=== PATIENT | female | born 1985 | race Caucasian/White ===

== ENCOUNTER 2017-01-17 17:38 | Emergency (ER) | payer MEDICAID ==
[~2017-01-17] VITALS: Ht 160 cm; Wt 78.9 kg
[~2017-01-17 17:38] MED LIST: CALC-143 PO; IBUP-1542 PO; PREN1CAP12
[2017-01-17 17:40] VITALS: Ht 160 cm; Wt 78.9 kg
[2017-01-17] MEDS ORDERED: KETOROLAC 60 MG INJ IM STA (18:20)
[2017-01-17 18:24] LABS: URINE BLOOD (Dip) POC Negative (NEGATIVE)
[2017-01-17 18:38] LABS: ADD SCAN DIFF NO
[2017-01-17 18:40] LABS: BASOPHILS % 0.3 % (0.0-2.0); EOSINOPHILS # 0.4 10^3/ul (0.0-0.5); EOSINOPHILS % 7.2 % (0.0-7.0); HEMATOCRIT 38.2 % (37.0-47.0); HEMOGLOBIN 12.8 g/dl (12.0-16.0); LYMPHOCYTES # 1.2 10^3/ul (0.8-2.9); LYMPHOCYTES % 20.7 % (15.0-51.0); MEAN CORPUSCULAR HGB CONC 33.5 g/dl (32.0-37.0); MEAN CORPUSCULAR VOLUME 86.4 fl (82.0-101.0); MONOCYTE # 0.3 10^3/ul (0.3-0.9); MONOCYTES % 5.6 % (0.0-11.0); NEUTROPHIL # 3.9 10^3/ul (1.6-7.5); PLATELET COUNT 171 10^3/UL (140-415); RED BLOOD COUNT 4.42 10^6/ul (4.20-5.40); RED CELL DISTRIBUTION WIDTH 13.9 % (11.5-14.5); WHITE BLOOD COUNT 5.9 10^3/ul (4.8-10.8)
[2017-01-17 18:49] LABS: ALBUMIN 3.8 g/dl (3.3-4.9); POTASSIUM 3.9 mmol/L (3.5-5.1)
[2017-01-17 18:51] LABS: BILIRUBIN,INDIRECT 0.4 mg/dl (0-1.1); BILIRUBIN,TOTAL 0.4 mg/dl (0.2-1.3); CREATININE 0.65 mg/dl (0.44-1.00)
[2017-01-17 18:52] LABS: ALBUMIN/GLOBULIN RATIO 1.02; CALCIUM 8.8 mg/dl (8.4-10.2); TOTAL PROTEIN 7.5 g/dl (6.1-8.1)
[2017-01-17] MEDS ORDERED: IBUP-1542 PO (19:26)
--- NOTE | 2017-01-28 10:18 | ERD ---
ER Documentation Chief Complaint Date/Time DATE: 01/28/17 TIME: 10:15 Chief Complaint JOINT PAIN X 1 YEAR INTERMITTENT HPI This 31-year-old male presents with intermittent joint pains and fatigue over the last year. She denies any current fevers, cough, shortness breath, vomiting , abdominal pain, diarrhea, urinary complaints. She denies any previous history of family history of autoimmune disease. ROS All systems reviewed and are negative except as per history of present illness. Medications Home Meds Active Scripts Ibuprofen* (Motrin*) 600 Mg Tab, 600 MG PO Q6, #30 TAB Prov:ALINA SEN MD 01/17/17 Ibuprofen* (Ibuprofen*) 600 Mg Tablet, 600 MG PO .ONCE Y for Mild Pain (Pain Score 1-3), #20 TAB 0 Refills Prov:CESIA HESS MD 05/20/16 Reported Medications Calcium Citrate/Vitamin D (Citracal-Vitamin D 200 MG-250) 1 Each Tablet, 1 EACH PO DAILY, TAB 08/06/14 No.25/Iron/Fa #6/Dha (PRENA1 SOFTGEL) 1 Each Capsule 02/06/14 Allergies Allergies: Coded Allergies: No Known Allergy (Verified , 03/26/16) PMhx/Soc Medical and Surgical Hx: pt denies Medical Hx, pt denies Surgical Hx Hx Alcohol Use: No Hx Substance Use: No Hx Tobacco Use: No Smoking Status: Never smoker Physical Exam Physical Exam Const: [] Alert, not ill-appearing . Head: Atraumatic Eyes: Normal Conjunctiva ENT: Normal External Ears, Nose and Mouth. Neck: Full range of motion..~ No meningismus. Resp: Clear to auscultation bilaterally Cardio: Regular rate and rhythm, no murmurs Abd: Soft, non tender, non distended. Normal bowel sounds Skin: No petechiae or rashes Back: No midline or flank tenderness Ext: No cyanosis, or edema. Mild generalized synovitis in the wrists and hands without erythema, warmth, restricted range of motion weakness. Neur: Awake and alert Psych: Normal Mood and Affect Results 24 hrs Laboratory Tests Test 01/17/17 18:24 01/17/17 18:30 Bedside Urine pH (LAB) 7.0 Bedside Urine Protein (LAB) Negative Bedside Urine Glucose (UA) Negative Bedside Urine Ketones (LAB) Negative Bedside Urine Blood Negative Bedside Urine Nitrite (LAB) Negative Bedside Urine Leukocyte Esterase (L Negative White Blood Count 5.910^3/ul Red Blood Count 4.4210^6/ul Hemoglobin 12.8g/dl Hematocrit 38.2% Mean Corpuscular Volume 86.4fl Mean Corpuscular Hemoglobin 29.0pg Mean Corpuscular Hemoglobin Concent 33.5g/dl Red Cell Distribution Width 13.9% Platelet Count 41344^3/UL Mean Platelet Volume 10.0fl Neutrophils % 66.0% Lymphocytes % 20.7% Monocytes % 5.6% Eosinophils % 7.2% Basophils % 0.3% Nucleated Red Blood Cells % 0.0/100WBC Neutrophils # 3.910^3/ul Lymphocytes # 1.210^3/ul Monocytes # 0.310^3/ul Eosinophils # 0.410^3/ul Basophils # 0.010^3/ul Nucleated Red Blood Cells # 0.010^3/ul Sodium Level 139mmol/L Potassium Level 3.9mmol/L Chloride Level 101mmol/L Carbon Dioxide Level 29mmol/L Anion Gap 13 Blood Urea Nitrogen 8mg/dl Creatinine 0.65mg/dl Glucose Level 102mg/dl Calcium Level 8.8mg/dl Total Bilirubin 0.4mg/dl Direct Bilirubin 0.00mg/dl Indirect Bilirubin 0.4mg/dl Aspartate Amino Transf (AST/SGOT) 30IU/L Alanine Aminotransferase (ALT/SGPT) 43IU/L Alkaline Phosphatase 84IU/L Total Protein 7.5g/dl Albumin 3.8g/dl Globulin 3.70g/dl Albumin/Globulin Ratio 1.02 Current Medications Medications (Trade) Dose Ordered Sig/Mellissa Route PRN Reason Start Time Stop Time Status Last Admin Dose Admin Ketorolac Tromethamine (Toradol) 60 mg ONCE STAT IM 01/17/17 18:20 01/17/17 18:21 DC 01/17/17 18:27 Procedures/MDM Patient presents with multiple complaints and diffuse arthralgias. CBC, CMP and urine is negative for acute findings. HCG is negative. Patient presents with multiple complaints and signs of arthralgias, possibly reactive arthritis or autoimmune disease. Patient is advised to follow-up with primary doctor for further evaluation and management otherwise return for fevers, vomiting, shortness of breath or chest pain. Signs and symptoms do not suggest septic arthritis, tenosynovitis, osteomyelitis, additional emergent causes of joint pain. The patient was stable with no new complaints during the ER course. Clinically, there is no current evidence to suggest meningitis, sepsis, acute abdomen, pneumonia, acute coronary syndrome, pulmonary embolism, or any other emergent condition appearing to require further evaluation or hospitalization. The patient should certainly return for any new or worsening symptoms per the aftercare instructions. They should otherwise follow-up with her primary care doctor for reevaluation this week. Departure Diagnosis: Primary Impression: Arthralgia Condition: Stable Patient Instructions: Arthralgia [facility] Usted se bennett hecho un examen mdico de control que le indica que no est en ja condicin que requiera tratamiento urgente en el Departamento de Emergencia. Un estudio ms profundo y el tratamiento de grant condicin pueden esperar sin ningn riesgo hasta que usted sea atendida/o en el consultorio de grant mdico o ja cl makenzie. Es responsabilidad suya arreglar ja lucina para el seguimiento del angela. MANEJO DE CONDICIONES NO URGENTES EN EL FUTURO 1) Si usted tiene un mdico de atencin primaria: Usted debera llamar a grant mdico de atencin primaria antes de venir al departamento de emergencia. Despus de las horas de consultorio, grant doctor o grant asociado/a est disponible por telfono. El mdico o enfermero de amanda en el servicio telefnico puede asesorarle por ana paula medio para atender el problema, o angela contrario se puede programar ja lucina. 2) Si usted no tiene un mdico de atencin primaria: Llame al mdico o clnica de referencia que aparece abajo alia las horas de consultorio para hacer ja lucina para que le vean. CLINICAS: [facility] [phone] [id number] [facility] [phone] [id number] [facility] [phone] [address] [facility] [phone] [facility] [phone] [address] [facility]. [phone] [address] Additional Instructions: Examines normal hoy. Cheque otro vez con grant doctor primario en el proximo marx or regresa para mas o nueva simptomas. recomiendo examines para artritis- rheumatoid, otro typos. ALINA SEN MD Jan 28, 2017 10:18
== END 2017-01-17 19:30 | disposition home or self-care (01) ==
LOC: FTE 17:38
DX: M25.50 Pain in unspecified joint (principal)
CPT/HCPCS: 80053; 81003; 85025; J1885; 96372